=== PATIENT | male | born 1990 | race Caucasian/White ===

== ENCOUNTER 2022-11-01 17:23 | Emergency (ER) | payer OTHER, SELFPAY ==
[2022-11-01 17:24] VITALS: BP 121/77; PULSE 94; RESP 16; TEMP 36.1; O2SAT 95; BMI 21.2
--- NOTE | 2022-11-01 17:40 | CT_ITS ---
INDICATION: low back pain EXAMINATION: CT SPINE - CT Spine Lumbar W/O Contrast Injection COMPARISON: None. A radiation dose optimization technique was used for this scan. Findings: Serial CT axial images through the lumbar spine, with coronal and sagittal reformatted series. BONES: No evidence of lumbar spine fracture or subluxation. No concerning bony lesion or abnormal sclerosis to suggest lesion. DISCS/JOINTS: No significant degenerative change. SOFT TISSUES: Soft tissue structures are unremarkable. CT/Spine Lumbar without Contrast IMPRESSION: Unremarkable lumbar spine without acute osseous abnormality or significant neuroforaminal narrowing appreciated. Electronically Signed: Michael Clark MD at 18:27 EDT ,
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
--- NOTE | 2022-11-01 17:45 | RAD_ITS ---
INDICATION: hip pain EXAMINATION/TECHNIQUE: X-RAY - RIGHT XR Hip Unilateral with Pelvis when performed; 2-3 Views COMPARISON: None. FINDINGS: Single frontal view of the pelvis. 2 views of the right hip. BONES: Normal anatomic alignment without evidence of fracture or subluxation. No concerning bony lesion or abnormal sclerosis to suggest lesion. JOINTS: No significant degenerative change. SOFT TISSUES: Unremarkable. RAD/HIP, UNI W/ Pelvis 2-3 Views IMPRESSION: No acute osseous abnormality of the pelvis or right hip. Electronically Signed: Michael Clark MD at 18:16 EDT ,
[2022-11-01] MEDS: predniSONE 20 MG Tablet 40 MG PO (18:02)
[2022-11-01] MEDS: Oxycodone/Apap 5/325 Tablet PO (18:02)
[2022-11-01] MEDS: Ibuprofen 200 MG Tablet 400 MG PO (18:03)
[2022-11-01 19:02] VITALS: RESP 16
== END 2022-11-01 19:03 | disposition home or self-care (01) ==
LOC: ED 18:51
PROVIDERS: Emergency Provider Emergency Medicine; PCP Internal Medicine; Visit Provider Emergency Medicine
DX: S70.01XA Contusion of right hip, initial encounter (principal); M54.16 Radiculopathy, lumbar region; M54.30 Sciatica, unspecified side; X58.XXXA Exposure to other specified factors, initial encounter
CPT/HCPCS: 72131; 73502; 99283